=== PATIENT | male | born 1985 | race Caucasian/White ===

== ENCOUNTER 2017-05-29 11:25 | Emergency (ER) | payer OTHER ==
[2017-05-29 11:33] VITALS: BP 118/72
[2017-05-29] MEDS ORDERED: Ketorolac INJ* 60 MG/2 ML VIAL IM ONE (12:27)
--- NOTE | 2017-05-29 12:47 | UC ---
Back Pain HPI - HPI Summary HPI Summary: Pt reports that he was playing touch football on 05/26/17 and slipped on wet grass while running and fell on left buttock. Pt reports that left buttock is bruised and pain radiates from left buttock around to to scrotum, pelvis and perineum. Pt denies bladder or bowel incontinence. Denies, numbness, weakness or loss lower extremity control. Pt reports pain has worsened gradually since onset - History of Current Complaint Chief Complaint: UCLowerExtremity Stated Complaint: GROIN PAIN FROM 05/26 Time Seen by Provider: 05/29/17 12:10 Hx Obtained From: Patient Onset/Duration: Gradual Onset, Lasting Days Timing: Constant, Lasting Days Severity Initially: Mild Severity Currently: Moderate Back Pain: Is Discrete @ - left buttock, Radiates To - LLQ, pelvis and scrotum Character: Dull, Aching Aggravating: Movement, Lifting Alleviating: Rest, Position Associated Signs And Symptoms: Positive: Bruising - left buttock - Allergies/Home Medications Allergies/Adverse Reactions: Allergies Allergy/AdvReac Type Severity Reaction Status Date / Time No Known Allergies Allergy Verified 05/29/17 11:33 PMH/Surg Hx/FS Hx/Imm Hx Previously Healthy: Yes - Surgical History Surgical History: None - Family History Known Family History: Positive: Other - positive - Social History Alcohol Use: None Substance Use Type: None Smoking Status (MU): Heavy Every Day Tobacco Smoker Type: Cigarettes Amount Used/How Often: 1/2 ppd Review of Systems Constitutional: Negative Skin: Bruising - left buttock Eyes: Negative ENT: Negative Respiratory: Negative Cardiovascular: Negative Gastrointestinal: Negative Genitourinary: Other - pain suprapubic tenderness, scrotal Motor: Decreased ROM - pain with ROM lef hip Neurovascular: Negative Musculoskeletal: Myalgia - left hip, buttock, Neurological: Negative Psychological: Negative All Other Systems Reviewed And Are Negative: Yes Physical Exam Triage Information Reviewed: Yes Appearance: Pain Distress Vital Signs: Initial Vital Signs Temp 98.9 F 05/29/17 11:27 Pulse 84 05/29/17 11:27 Resp 16 05/29/17 11:27 BP 118/72 05/29/17 11:27 Pulse Ox 98 05/29/17 11:27 Vital Signs Reviewed: Yes Eye Exam: Normal ENT Exam: Normal Neck exam: Normal Respiratory Exam: Normal Cardiovascular Exam: Normal Abdominal Exam: Other - suprapubic tenderness, no hernia appreciated inguinal or abdominal, umbilical, no scrotal swelling, mild tenderness with exam to scrotum, no hydrocele, or high riding testicle. Pt reports pain relief with positioning. Denies bowel or bladder incontinence Back Pain Course/Dx - Differential Dx/Diagnosis Differential Diagnosis/HQI/PQRI: Cauda Equina Syndrome, Strain, Other - testicular torsion Provider Diagnoses: left buttock hematoma. low back strain Discharge - Discharge Plan Condition: Stable Disposition: HOME Prescriptions: Cyclobenzaprine TAB* [Flexeril 10 MG TAB*] 10 mg PO TID PRN #6 tab PRN Reason: Pain Ibuprofen TAB* [Motrin TAB* 800 MG] 800 mg PO Q8H PRN #15 tab PRN Reason: Pain Patient Education Materials: Contusion in Adults (ED), Muscle Spasm (ED), Lower Back Exercises (ED) Forms: *Work Release Referrals: Non Staff,Doctor [Medical Doctor] -
== END 2017-05-29 13:22 | disposition home or self-care (01) ==
LOC: UCCORT 11:25
DX: S30.0XXA Contusion of lower back and pelvis, initial encounter (principal); S39.012A Strain of muscle, fascia and tendon of lower back, initial encounter; W01.0XXA Fall on same level from slipping, tripping and stumbling without subsequent striking against object, initial encounter; Y93.62 Activity, american flag or touch football; Y92.9 Unspecified place or not applicable; Y99.9 Unspecified external cause status; Z72.0 Tobacco use
CPT/HCPCS: 81003; 96372; 99202; G0463; J1885